=== PATIENT | male | born 1960 | race Caucasian/White ===

== ENCOUNTER 2016-07-12 09:41 | Emergency (ER) | payer BC ==
[2016-07-12] MEDS ORDERED: KETOROLAC TROMETHAMINE 60 MG/2 ML VIAL IM ONE ×2 (10:02→10:10)
[2016-07-12 10:23] LABS: Hematocrit 44.6 % (42.0-52.0); Mean Cell Volume 91.2 fl (78-100); Mean Corpuscular Hemoglobin 30.7 pg (27-31); Mean Corpuscular Hgb Conc 33.6 g/dl (32-36); Mean Platelet Volume 9.9 fl (6.0-9.5); Neutrophil # 6.7 K/mm3 (1.3-6.0); Neutrophil % 70.5 % (42-75.0); Platelet Count 229 K/mm3 (150-450); Red Blood Count 4.89 M/mm3 (4.7-6.0); Red Cell Distribution Width 13.1 % (11.5-14.0); White Blood Count 9.5 K/mm3 (4.0-10.5)
--- NOTE | 2016-07-12 10:24 | ERNOTE ---
Lower Extremity HPI - Narrative Date of Service: 07/12/16 - General Lower Extremities Pain: leg: right Time Seen by Provider: 07/12/16 09:57 Source: patient Exam Limitations: no limitations - Immun/Allergies/Home Medications Allergies/Adverse Reactions: Allergies Allergy/AdvReac Type Severity Reaction Status Date / Time Penicillins Allergy Verified 07/12/16 10:07 Home Medications: HOME MEDICATIONS Enoxaparin Sodium [Lovenox] 120 mg SQ BID #10 disp.syrin 07/12/16 [Last Taken Unknown] Warfarin Sodium [Coumadin] 5 mg PO DAILY #10 tablet 07/12/16 [Last Taken Unknown ] - History of Present Illness Narrative: Pt. comes in with c/o RLE pain and swelling for three days that pt. states is increasing in intensity over the days. Pt. denies any SOB, CP, NVD, headache, dizziness, numbness or tingling. Pt. states that he took Ibuprofen yesterday without relief. Pt. states that ambulating and movement exacerbates the pain. Review of Systems - Review of Systems Constitutional: Present: no symptoms reported. Absent: recent illness, fever, chills, weakness, fatigue, malaise EYE: Present: no symptoms reported ENT: Present: no symptoms reported Respiratory: Present: no symptoms reported. Absent: shortness of breath, cough , wheezing Cardiology: Present: edema - RLE. Absent: chest pain Gastrointestinal/Abdominal: Present: no symptoms reported. Absent: nausea, vomiting, diarrhea Genitourinary: Present: no symptoms reported Musculoskeletal: Present: joint pain - RLE. Absent: back pain, neck pain Skin: Present: lumps - Post R knee. Absent: rash, dryness, change in color Neurological: Present: no symptoms reported. Absent: headache, dizziness/light- headedness, numbness, tingling All Other Systems: All systems neg except as marked Physical Exam - Physical Exam General Appearance: Present: wd/wn, alert, no apparent distress Eye Exam: Normal inspection: bilateral, PERRL: bilateral, EOMI: bilateral Ears, Nose, Throat: Present: normal ENT inspection, normal pharynx Neck: Present: normal inspection, nontender. Absent: lymphadenopathy (R), lymphadenopathy (L) Respiratory: Present: no respiratory distress, normal breath sounds, no accessory muscle use, chest nontender, lungs clear Cardiovascular/Chest: Present: regular rate, rhythm, no murmur, normal peripheral pulses Back Exam: Present: normal inspection, normal range of motion, no CVA tenderness , no vertebral tenderness Extremity Exam: Present: decreased range of motion - flexion, calf tenderness, extremity edema - RLE, other - post knee large cystlike fluctuance Neurological Exam: Present: alert, oriented, normal mood/affect, no motor/ sensory deficits Skin Exam: Present: normal color, warm/dry. Absent: pallor, skin rash ED Progress - Date and Time Seen: Date and Time: 07/12/16 11:50 Discussed case wtih Samina Ryne pt. PCP and she states that she cannot follow pt. with DVT so referred me to her collaborating physician Dr Castañeda, who is out of town so his nurse referred mye to Dr Estefany ann, who is also out of town and her nurse states that she notified the clinical laboratory medical director and they are contacting the clinical laboratory medical director of the [facility] to determine how this pt. can follow up. Contacted Pastora with the coumadin clinic who states that she can manage pt. for a couple of days but needs a primary physician for orders. Discussed with Marry in case management who is trying to find a primary to follow pt. for a week until Dr Castañeda returns to [facility]. 07/12/16 12:06 Pt. would like to go home and we will call him with appointment for follow up appointment later this afternoon. - Results and Orders Patient's Lab Results:: I have reviewed the patient's lab results. - Vital Signs Patient's Vital Signs:: I have reviewed the patient's vital signs. - CT/Ultrasound CT/Ultrasound Narrative: US RLE positive for extensive acute DVT extending from the distal superficial femoral vein through th.e popliteal, peroneal, and post tib veins Departure Clinical Impression: DVT (deep venous thrombosis) Qualifiers: DVT location: lower extremity Affected thrombotic vein of extremity: unspecified vein of extremity Laterality: right Chronicity: acute Qualified Code (s): I82.401 - Acute embolism and thrombosis of unspecified deep veins of right lower extremity - Departure Disposition: Home self-care Condition: Good Instructions: Deep Vein Thrombosis, Form - Excuse from Work, School, or Physical Activity Additional Instructions: Please follow up with our coumadin clinic here as scheduled and we will call you this afternoon with your follow up drs appointment. Please keep R leg elevated as much as possible. If you develop shortness of breath or chest pain please return to the ER. Prescriptions: Enoxaparin Sodium [Lovenox] 120 mg SQ BID #10 disp.syrin Warfarin Sodium [Coumadin] 5 mg PO DAILY #10 tablet
[2016-07-12 10:30] LABS: Prothrombin Time (Patient) 11.6 Seconds (9.4-11.4)
[2016-07-12 10:31] LABS: INR 1.12 INR (0.90-1.10); Partial Thrombolplastin Time 26.8 Seconds (24-32)
[2016-07-12 10:35] LABS: Albumin * 3.9 gm/dl (3.4-5.0); Anion Gap 14.1 mmol/L (6.8-13.8); BUN/Creatinine Ratio 11.9 (9.0-21.6); Bilirubin, Total 0.8 mg/dL (0.0-1.1); CRP 5.4 mg/dL (0.0-0.9); Ca. Corrected For Albumin 8.7 mg/dL (8.4-10.2); Calcium * 8.9 mg/dL (7.9-10.9); Carbon Dioxide 26.7 mmol/L (24-32.6); Potassium 3.8 mmol/L (3.4-4.6); Total Protein 7.9 gm/dL (6.2-8.2); Uric Acid 3.8 mg/dL (2.6-7.2)
[2016-07-12] MEDS ORDERED: ENOXAPARIN SODIUM 100 MG/ML SYRG SC ONE ×2 (11:44→11:50)
[2016-07-12 12:03] VITALS: BP 157/85
== END 2016-07-12 12:25 | disposition home or self-care (01) ==
LOC: ER 09:41
DX: I82.401 Acute embolism and thrombosis of unspecified deep veins of right lower extremity (principal)